=== PATIENT | female | born 1985 | race Two or more races ===

== ENCOUNTER 2024-11-13 15:39 | Outpatient (AMB) | payer MEDICAID, SELFPAY ==
[2024-11-13 16:01] VITALS: BP 108/69; PULSE 73; RESP 17; TEMP 36.9; O2SAT 97; BMI 22.3
--- NOTE | 2024-11-13 16:01 | GYNCLNT_ITS ---
Vital Signs 11/13/24 16:01 Height 1.6 m Height Method Stated Weight 57.153 kg Weight Measurement Method Standing Scale BMI 22.3 BP 108/69 Blood Pressure Source Automatic Cuff Blood Pressure Location Right Upper Arm Position Sitting Respiration 17 Pulse 73 Pulse Source Monitor Temp 98.4 F Temp Source Temporal Artery Scan Pulse Oximetry (%) 97 Oxygen Delivery Method Room Air Allergies/Home Meds Allergies & Medications Allergies No Known Allergies Allergy (Unknown, Verified 11/13/24 16:03) Intake Visit Data Collection New Patient or Established: New Patient (never been to [facility]) Reason for Visit:: REFERRAL ABN PAP Seen by Clinical Staff ONLY (RN/MA): No Pc Network Technician Required: No Do You Feel Safe at Home: Yes Authorities Contacted: N/A PCP or OBGYN visit in last 3 months: No Hx Now: No Are you currently on any form of Control: Yes (IUD) Pain Present Currently: No Pain Scale Used: Gotti-Alberto/Numerical Pain scale:: 0 Smoking Status 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 1. Little interest or pleasure in doing things: not at all 2. Feeling down, depressed, or hopeless: not at all Total score: 0 PHQ-9 3. Trouble falling or staying asleep, or sleeping too much: Not at all 4. Feeling tired or having little energy: Not at all 5. Poor appetite or overeating: Not at all 6. Feeling bad about yourself - or that you are a failure or have let yourself or your family down: Not at all 7. Trouble concentrating on things, such as reading the newspaper or watching television: Not at all 8. Moving or speaking so slowly that other people could have noticed? - Or the opposite - being so fidgety or restless that you have been moving around a lot more than usual: not at all 9. Thoughts that you would be better off or of hurting yourself in some way: Not at all Total score: 0 If you checked off any problems, how difficult have these problems made it for you to do your work, take care of things at home, or get along with other people?: not difficult at all Source: Developed by Drs. Issac Lea, Samantha Echevarria, Lee Eckert and colleagues, with an educational fara from [employer]. Depression screen completed yes Social History Living Situation History Lives With: Family Housing: House Tobacco History Smoking Status: Never smoker Alcohol History Alcohol Intake: Never Domestic Abuse History Do You Feel Safe at Home: Yes History of Present Illness HPI Narrative Ofelia Park is a 39-year-old female referred from [facility] for review of abnormal pap smear results. She had a pap smear on July 24, 2024, which was negative for intraepithelial lesion or malignancy but positive for high-risk HPV subtypes other than 16, 18, and 45. The patient also had arabella and Jivi on the vaginitis panel. Upon further questioning, Ofelia revealed a history of an abnormal pap smear a couple of years ago, for which she underwent a procedure she describes as sprayed something really cold, likely a cryotherapy treatment. This information was not included in the referral documentation. Ofelia reports experiencing pain and discomfort during intercourse. She also describes sharp pains in her side, specifically in the ovary area. These pains occur both when she is about to menstruate and at other times unrelated to her menstrual cycle. The patient notes that these symptoms are present even when she is not engaging in intercourse. The patient confirms that she was treated for the bacterial and yeast infections identified in her recent pap smear and associated tests. ROS: Genitourinary: Positive for dyspareunia, pelvic pain unrelated to intercourse or menstruation. Musculoskeletal: Positive for sharp pain in the groin area. Exam General General Appearance: alert, in no apparent distress and healthy appearing Head Head exam: atraumatic Neck Neck exam: Present normal inspection and trachea midline Chest Chest inspection: Present normal inspection and symmetric chest wall rise External exam: Present normal external exam; Absent tenderness Neuro Neurological exam: Present oriented X3 Psych Psychiatric exam: Present normal affect and normal mood Office Procedures OB Clinic LOC & Office Proc's Nursing/Assessment Patient Status: Initial/New Patient OB Clinic Nursing Assessment: Medication Reconciliation, Update PMH in EMR and Vital Signs OB Clinic Coordination of Care: Complex Care and Chronic Disease 1-5, Consent,records obtained, informed consent, Education Simp Pt/Fam, Lab and Imaging orders and Staff clarify orders New Patient Charge New Patient Point Assignment: 1099 New Patient Point Charge: POCKET BUILDER Level 3 ([id number]) Assessment & Plan Diagnosis / Problem List (1) Pelvic and perineal pain: Status: Acute (2) High risk human papillomavirus (HPV) detected: Status: Acute Plan Abnormal Pap Smear with Positive High-Risk HPV: - Pap smear from 07/24/2024 negative for intraepithelial lesion or malignancy. - Positive for high-risk HPV subtypes (other than 16, 18, and 45). - History of previous abnormal pap smear with cryotherapy treatment. - 5-year risk of CIN3+ estimated at 2.3% to 8.6% based on current results. Plan: - Perform colposcopy with cervical biopsy - Provide patient education on colposcopy procedure - Schedule follow-up appointment for colposcopy Pelvic Pain: - Sharp pains in ovary area, during intercourse and unrelated to menstrual cycle. - Pain not likely related to cervical abnormalities. - Further investigation needed to determine cause. Plan: - Order pelvic ultrasound to evaluate for ovarian cysts or other pelvic pathology History of Vaginal Infections: - Recent pap smear detected Arabella and Jivi on vaginitis panel. - Infections have been treated. Plan: - No current action needed; infections have been treated - Monitor for recurrence of symptoms
== END 2024-11-13 16:39 | disposition home or self-care (01) ==
LOC: HODSOBC 15:39
PROVIDERS: PCP Registered Nurse Community Health; Referring Provider Registered Nurse Community Health; Supervising Provider Obstetrics & Gynecology; Visit Provider Obstetrics & Gynecology
DX: R10.2 Pelvic and perineal pain (principal); R87.810 Cervical high risk human papillomavirus (HPV) DNA test positive; Z87.42 Personal history of other diseases of the female genital tract
CPT/HCPCS: 99203; G0463

== ENCOUNTER → 2024-11-22 | Outpatient (CLI) | payer BC, MEDICAID, SELFPAY ==
--- NOTE | 2024-11-22 14:00 | XR_ITS ---
Examination: Pelvic ultrasound, transabdominal, complete Technique: Transabdominal ultrasound of the pelvis performed using grayscale imaging Date and time of exam: November 22, 2024 1459 hours INDICATIONS: Pelvic pain 6 months during intercourse FINDINGS: Uterus 8.7 cm Intrauterine device satisfactory position No uterine mass or intrauterine gestation Endometrial stripe 0.7 cm Right ovary 3.5 cm arterial flow multiple cysts, the largest 26 mm Left ovary 3.6 cm arterial flow follicular cysts, the largest 14 mm IMPRESSION: No uterine mass or intrauterine gestation
== END | disposition home or self-care (01) ==
PROVIDERS: PCP Registered Nurse Community Health; Referring Provider Obstetrics & Gynecology; Visit Provider Obstetrics & Gynecology
DX: R10.2 Pelvic and perineal pain (principal)
CPT/HCPCS: 76856

== ENCOUNTER 2024-12-10 11:31 | Outpatient (AMB) | payer BC, MEDICAID, SELFPAY ==
--- NOTE | 2024-12-10 11:43 | GYNCLNT_ITS ---
Vital Signs 12/10/24 11:44 Height 1.6 m Height Method Stated Weight 58.684 kg Weight Measurement Method Standing Scale BMI 22.9 BP 114/74 Blood Pressure Source Automatic Cuff Blood Pressure Location Right Upper Arm Position Sitting Respiration 17 Pulse 81 Pulse Source Monitor Temp 98.7 F Temp Source Temporal Artery Scan Pulse Oximetry (%) 98 Oxygen Delivery Method Room Air Allergies/Home Meds Allergies & Medications Allergies No Known Allergies Allergy (Unknown, Verified 11/13/24 16:03) Medication Reconciliation doxycycline hyclate 100 mg capsule 100 mg PO BID 7 days #14 caps 12/10/24 [Rx Confirmed 12/10/24] ondansetron 4 mg disintegrating tablet 4 mg PO Q6H PRN nausea and vomiting 7 days #20 tabs 12/10/24 [Rx Confirmed 12/10/24] Intake Visit Data Collection New Patient or Established: Established Patient (seen at [facility] within 3 years) Reason for Visit:: US RESULTS Seen by Clinical Staff ONLY (RN/MA): No Program Support Specialist Required: No Do You Feel Safe at Home: Yes Authorities Contacted: N/A PCP or OBGYN visit in last 3 months: Yes Date of Last PCP or OBGYN visit: 11/13/24 Hx Now: No Are you currently on any form of Control: Yes Pain Present Currently: No Pain Scale Used: Gotti-Alberto/Numerical Smoking Status Smoking Status: Never 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 1. Little interest or pleasure in doing things: not at all 2. Feeling down, depressed, or hopeless: not at all Total score: 0 PHQ-9 3. Trouble falling or staying asleep, or sleeping too much: Not at all 4. Feeling tired or having little energy: Not at all 5. Poor appetite or overeating: Not at all 6. Feeling bad about yourself - or that you are a failure or have let yourself or your family down: Not at all 7. Trouble concentrating on things, such as reading the newspaper or watching television: Not at all 8. Moving or speaking so slowly that other people could have noticed? - Or the opposite - being so fidgety or restless that you have been moving around a lot more than usual: not at all 9. Thoughts that you would be better off or of hurting yourself in some way: Not at all Total score: 0 If you checked off any problems, how difficult have these problems made it for you to do your work, take care of things at home, or get along with other people?: not difficult at all Source: Developed by Drs. Issac Lea, Samantha Echevarria, Lee Eckert and colleagues, with an educational fara from [employer]. Depression screen completed yes Social History Living Situation History Marital Status: Lives With: Family Housing: House Tobacco History Smoking Status: Never smoker Second Hand Smoke Exposure: No Alcohol History Alcohol Intake: Never Domestic Abuse History Do You Feel Safe at Home: Yes History of Present Illness HPI Narrative Patient presents for follow-up of an abnormal pap smear with positive high-risk HPV, sharp pelvic pain, and dyspareunia. She has a recent history of bacterial vaginosis and arabella, for which she has already been treated. The patient reports experiencing sharp pelvic pain and pain during intercourse (dyspareunia). The pain is described as deep and occurs during sexual activity. The patient's sister has a history of endometriosis, which is noted to run in families. This family history may be significant given the patient's symptoms. A pelvic ultrasound was performed on November 22, 2024, revealing multiple small cysts on both ovaries. The largest cyst measures 26 millimeters, with another measuring 14 millimeters. These findings may be contributing to the patient's pelvic pain and dyspareunia. The patient was previously recommended to undergo a colposcopy due to her abnormal pap smear and positive high-risk HPV test. She had initially scheduled this procedure at a different facility but is now considering having it done under sedation along with a diagnostic laparoscopy to further investigate her pelvic pain and ovarian cysts. The patient has a history of IUD placement (date unspecified). The IUD is currently in satisfactory position. She reports dyspareunia (pain during intercourse) in her social history. Review of systems is positive for sharp pelvic pain and dyspareunia in the genitourinary system. Diagnostic Test Results and Labs: - Pap smear: Abnormal with positive high-risk HPV - Pelvic ultrasound (11/22/2024): Uterus: 8.7 cm Intrauterine device: In satisfactory position Endometrial stripe: 0.7 cm Right ovary: 3.5 cm with atrial flow, multiple cysts (largest 26 mm) Left ovary: 3.6 cm with atrial flow, follicular cysts (largest 14 mm) No intrauterine mass or intrauterine gestation Exam General General Appearance: alert, in no apparent distress and healthy appearing Head Head exam: atraumatic Neck Neck exam: Present normal inspection and trachea midline Chest Chest inspection: Present normal inspection and symmetric chest wall rise External exam: Present normal external exam; Absent tenderness Neuro Neurological exam: Present oriented X3 Psych Psychiatric exam: Present normal affect and normal mood Office Procedures OB Clinic LOC & Office Proc's Nursing/Assessment Patient Status: Established Patient OB Clinic Nursing Assessment: Medication Reconciliation, Update PMH in EMR and Vital Signs OB Clinic Coordination of Care: Complex Care and Chronic Disease 1-5, Consent,records obtained, informed consent, Education Simp Pt/Fam, Result s/Orders obtained and Staff clarify orders Established Patient Charge Established Patient Point Assignment: 90 Established Patient Point Charge: EP Level 3 (80-115) Assessment & Plan Diagnosis / Problem List (1) Pelvic inflammatory disease: Status: Acute (2) High risk human papillomavirus (HPV) detected: Status: Acute Plan Abnormal Pap Smear with Positive High-Risk HPV: - Schedule colposcopy as part of a combined procedure with diagnostic laparoscopy in the operating room under IV sedation. - Obtain informed consent for the procedure. Pelvic Pain and Dyspareunia: - Prescribe course of antibiotics for presumed PID. - Schedule diagnostic laparoscopy in combination with colposcopy under IV sedation. - Evaluate ovarian cysts and check for endometriosis during laparoscopy. - Prescribe Zofran as needed for potential antibiotic-induced nausea. Recent History of Bacterial Vaginosis and Candidiasis: - Monitor for recurrence of symptoms. Differential Diagnoses: - Pelvic inflammatory disease (PID) - Polycystic ovary syndrome (PCOS) - Endometriosis Imaging: - Recent pelvic ultrasound shows multiple small cysts on both ovaries, with the largest being 26 mm. Family History: - Sister with endometriosis.
[2024-12-10 11:44] VITALS: BP 114/74; PULSE 81; RESP 17; TEMP 37.1; O2SAT 98; BMI 22.9
== END 2024-12-10 12:11 | disposition home or self-care (01) ==
LOC: HODSOBC 11:31
PROVIDERS: PCP Registered Nurse Community Health; Referring Provider Registered Nurse Community Health; Supervising Provider Obstetrics & Gynecology; Visit Provider Obstetrics & Gynecology
DX: N73.9 Female pelvic inflammatory disease, unspecified (principal); R87.810 Cervical high risk human papillomavirus (HPV) DNA test positive
CPT/HCPCS: 99213; G0463

== ENCOUNTER 2025-05-04 20:12 | Emergency (ER) | payer BC, MEDICAID, SELFPAY ==
[2025-05-04 20:13] VITALS: BMI 22.3
[2025-05-04 20:41] VITALS: BP 131/82; PULSE 89; RESP 18; TEMP 36.8; O2SAT 98
--- NOTE | 2025-05-04 20:45 | XR_ITS ---
Examination: Retroperitoneal ultrasound, complete Technique: Multiple high resolution grayscale images of the retroperitoneum obtained, including kidneys and bladder. Exam date and time: May 04, 2025, 2108 hours INDICATIONS: Urinary tract infections with flank pain 3 days FINDINGS: Right kidney 11.3 cm renal cortex 1.4 cm Left kidney 11.1 cm cortex 1.9 cm No hydronephrosis Contracted urinary bladder IMPRESSION: No hydronephrosis or renal calculi
[2025-05-04 21:12] LABS: Basophils # (Auto) 0.0 Thou/mm3 (0.0-0.2); Basophils % (Auto) 0 % (0-2.5); Eosinophils # (Auto) 0.3 Thou/mm3 (0.0-0.5); Eosinophils % (Auto) 4 % (0-10); Hematocrit 39.8 % (36.0-46.0); Hemoglobin 13.1 g/dL (12.0-16.0); Immature Granulocytes Auto 0.01 Thou/mm3 (0.00-0.00); Lymphocytes # (Auto) 2.7 Thou/mm3 (1.0-4.8); Lymphocytes % (Auto) 40 % (10-50); Mean Corpuscular HGB Conc 32.9 g/dl (31.0-37.0); Mean Corpuscular Hemoglobin 30.1 pg (25.0-35.0); Mean Corpuscular Volume 92 fL (80-100); Monocytes # (Auto) 0.7 Thou/mm3 (0.0-0.8); Monocytes % (Auto) 11 % (0-12); Neutrophils # (Auto) 3.1 Thou/mm3 (1.8-7.7); Neutrophils % (Auto) 45 % (37-80); Nucleated Red Blood Cell # 0.00 Thou/mm3 (0.00-0.00); Nucleated Red Blood Cell % 0 /100 WBC (0); Platelet Count 225 Thou/mm3 (140-440); RDW Standard Deviation 41.1 fL (36.4-46.3); Red Blood Count 4.35 Miln/mm3 (4.00-5.20); White Blood Count 6.8 Thou/mm3 (3.6-11.0)
[2025-05-04 21:19] LABS: Collection Type, Urine Clean Catch
[2025-05-04 21:32] LABS: Amorphous Crystals,Urine Present (Absent); Bacteria,Urine Rare; Bilirubin,Urine 2+ (Negative); Blood,Urine Trace (Negative); Clarity,Urine Clear (Clear/Hazy); Color,Urine Drk-Orange (Lt Yel-Yel); Glucose, Urine Negative (Negative); Ketones,Urine Negative (Negative); Leukocyte Esterase,Urine Positive (Negative); Nitrite,Urine Positive (Negative); PH,Urine 6.5 (5.0-7.0); Protein,Urine Negative (Neg - Trace); RBC,Urine 2 /hpf (0-3); Specific Gravity,Urine 1.015 (1.001-1.035); Squamous Epithelial Cell,Urine 3 /hpf (0-5); Urobilinogen,Urine 6.0 mg/dL (0.0-1.0); WBC,Urine 7 /hpf (0-5)
[2025-05-04 21:33] LABS: HCG Qualitative,Urine Negative
[2025-05-04 21:35] LABS: Alanine Aminotransferase 23 U/L (10-49); Albumin, Serum 4.7 gm/dL (3.5-5.0); Albumin/Globulin Ratio 2.0 (1.2-2.2); Alkaline Phosphatase 65 U/L (46-116); Anion Gap 7 (7-16); Aspartate Amino Transferase 22 U/L (0-34); BUN/Creatinine Ratio 13 Ratio (12-20); Bilirubin,Total 0.6 mg/dL (0.3-1.2); Blood Urea Nitrogen 9 mg/dL (9-23); Calcium 9.9 mg/dL (8.3-10.6); Calcium (Corrected) 9.9 mg/dL (8.5-10.1); Carbon Dioxide 26.7 mMol/L (20.0-31.0); Chloride 107 mMol/L (98-107); Creatinine (Component) 0.7 mg/dL (0.6-1.3); Estimated Creatinine Clearance 95.0 mL/min (>60); Globulin 2.4 gm/dL (2.3-3.5); Glucose 84 mg/dL (74-106); Lipase 49 U/L (12-53); Osmolality,Calculated 278 (275-295); Potassium 4.1 mMol/L (3.4-5.1); Sodium 141 mMol/L (136-145); Total Protein 7.1 gm/dL (5.7-8.2); eGFR > 60 See Note
[2025-05-04] MEDS: FLUCONAZOLE 150 MG TABLET PO (22:36)
[2025-05-04] MEDS: HYDROcodone/APAP 5/325 TABLET 1 TAB PO (22:36)
--- NOTE | 2025-05-05 02:40 | PD.EDFMALE ---
ED Female Urogenital RME/HPI General Chief complaint: Urogenital-Female Stated complaint: UTI SYMPTOMS Time Seen by Provider: 05/04/25 20:16 Arrival date/time: 05/04/25 20:12 This is a case of 39-year-old female with no medical history came in in the emergency room due to painful urination no hematuria but with urgency and increased frequency for 1 week patient was seen by the primary care physician where she was treated for urinary tract infection and was treated for cephalexin patient still with the symptoms now with vaginal discharge and itching and both flank pain thus decided to sought consult here in the emergency room Limitations: no limitations Related Data Previous Rx's ?Medication ?Instructions ?Recorded ibuprofen 800 mg tablet 800 mg PO Q8H PRN pain #20 tabs 05/04/25 metronidazole 500 mg tablet 500 mg PO BID #20 tabs 05/04/25 phenazopyridine 200 mg tablet 200 mg PO TID 6 doses #6 tabs 05/04/25 (Pyridium) Allergies Allergy/AdvReac Type Severity Reaction Status Date / Time No Known Allergies Allergy Unknown Verified 11/13/24 16:03 Review of Systems Review of Systems Systems Reviewed: All systems reviewed, normal except as documented Constitutional Constitutional: Reports system reviewed and no additional complaints, except as documented and Reports as per HPI Cardiovascular Cardiovascular: Reports system reviewed and no additional complaints, except as documented and Reports as per HPI Respiratory Respiratory: Reports system reviewed and no additional complaints, except as documented and Reports as per HPI Gastrointestinal Gastrointestinal: Reports system reviewed and no additional complaints, except as documented and Reports as per HPI Genitourinary Genitourinary: Reports system reviewed and no additional complaints, except as documented and Reports as per HPI Musculoskeletal Musculoskeletal: Reports system reviewed and no additional complaints, except as documented and Reports as per HPI Neurologic Neurologic: Reports system reviewed and no additional complaints, except as documented and Reports as per HPI Past Medical History Past Medical History CARDIAC: Negative Cardiac Disorders or Congestive Heart Failure RESPIRATORY: Negative Chronic Obstructive Pulmonary Disease (COPD) or Asthma GENITOURINARY: Negative Renal Disease ENDOCRINE: Negative Diabetes Mellitus Type 1 or Diabetes Mellitus Type 2 HEMATOLOGIC: Negative Sickle Cell Disease Social History SMOKING STATUS: Never smoker SECOND HAND EXPOSURE: No ED Exam General Limitations: Present no limitations General appearance: Present alert, in no apparent distress and other (Patient is awake alert oriented not in distress nontoxic looking well-hydrated well nourished) Head Head exam: Present atraumatic, normocephalic and normal inspection Eye Eye exam: Present normal appearance, PERRL and EOMI ENT ENT exam: Present normal exam, normal oropharynx and mucous membranes moist Neck Neck exam: Present normal inspection, full ROM and trachea midline; Absent tenderness, meningismus, lymphadenopathy or thyromegaly Chest Chest inspection: Present normal inspection and symmetric chest wall rise; Absent tenderness Respiratory Respiratory exam: Present normal lung sounds bilaterally; Absent respiratory distress, wheezes, stridor, accessory muscle use or prolonged expiratory phase Cardiovascular Cardiovascular exam: Present regular rate, normal rhythm and normal heart sounds; Absent bradycardia, tachycardia, irregular rhythm, systolic murmur or diastolic murmur Abdominal Exam Abdominal exam: Present soft and normal bowel sounds; Absent distention, tenderness, guarding, rebound, rigidity, diminished bowel sounds, hyperactive bowel sounds, hypoactive bowel sounds or organomegaly Speculum exam: Present other (Patient refused not comfortable) Extremities Exam Extremities exam: Present normal inspection and full ROM Back Exam Back exam: Present normal inspection and full ROM; Absent tenderness, CVA tenderness (R), CVA tenderness (L), muscle spasm, paraspinal tenderness, vertebral tenderness, rashes, sciatic notch tenderness (R), sciatic notch tenderness (L), straight leg raise (R) or straight leg raise (L) Neurological Exam Neurological exam: Present alert, oriented X3, CN II-XII intact, normal gait and reflexes normal; Absent motor sensory deficit Psychiatric Psychiatric exam: Present normal affect and normal mood Skin Skin exam: Present warm, dry, intact, normal color and other (Excellent skin turgor) Course Quality Measures none Orders Category Date Time Status US renal BI Stat Exams 05/04/25 20:45 Completed CBC Stat Lab 05/04/25 21:03 Completed Chlamydia/GC/TV - PCR Stat Lab 05/04/25 Ordered Comprehensive Metabolic Panel Stat Lab 05/04/25 21:03 Completed HCG Qualitative,Urine Stat Lab 05/04/25 21:09 Completed Lipase Stat Lab 05/04/25 21:03 Completed Urinalysis Stat Lab 05/04/25 21:09 Completed Fluconazole [Diflucan] Med 05/04/25 22:29 Discontinued 150 mg PO X1 ONE Fluconazole [Diflucan] Med 05/04/25 22:20 Discontinued 200 mg PO X1 ONE HYDROcodone*/APAP 5/325 [[place] 5/325] Med 05/04/25 22:21 Discontinued 1 tab PO X1 ONE Phenazopyridine HCl [Pyridium] Med 05/04/25 22:20 Discontinued 200 mg PO X1 ONE Vital Signs Vital signs: Vital Signs Temperature 98.2 F 05/04/25 20:41 Pulse Rate 89 05/04/25 20:41 Respiratory Rate 18 05/04/25 20:41 Blood Pressure 131/82 H 05/04/25 20:41 Pulse Oximetry (%) 98 05/04/25 20:41 Oxygen Delivery Method Room Air 05/04/25 20:41 Oxygen saturation is 98% in room air Urogenital - Female MDM Narrative MDM Narrative:: This is a case of 39-year-old female with no medical history came in in the emergency room due to painful urination no hematuria but with urgency and increased frequency for 1 week patient was seen by the primary care physician where she was treated for urinary tract infection and was treated for cephalexin patient still with the symptoms now with vaginal discharge and itching and both flank pain thus decided to sought consult here in the emergency room physical examination patient is awake alert oriented not in distress nontoxic looking well-hydrated well-nourished noted excellent skin turgor abdominal exam is benign nonsurgical no guarding no rebound no rigidity negative psoas negative straight and negative Rovsing's negative McBurney's negative [place] sign negative CVA tenderness patient back exam is normal patient feels pelvic exam patient is not comfortable due to vaginal irritation blood test showed no leukocytosis no anemia kidney and liver function is normal no electrolyte imbalance lipase were normal patient urinalysis showed WBC in the urine suggestive of urinary tract infection patient ultrasound of the kidney has no urinary stone gonorrhea chlamydia and BV Anisha is still pending result patient was advised to call medical record for the result of the test and if possible return to the emergency room or primary care physician for further treatment patient will continue cephalexin at home and to finish the antibiotic patient was given fluconazole for possible yeast infection patient was prescribed with metronidazole for vaginitis and Pyridium for urinary symptoms patient will follow-up with PCP in 2 days for reevaluation and for any worsening symptoms or any emergent concern return precaution in the ER is advised Patient was discharged with comfortable condition walking with stable gait. Patient verbalized no further complains explained diagnosis and answered patient question. Patient is comfortable with the proposed management plan including the need to follow up with his/her primary care physician and any specialist if applicable Discussed patient for any urgent condition or worsening sx, He/She needed to go to emergency room immediately or call 911. Patient acknowledge the responsibility to follow up as instructed and to monitor her/his symptoms. For any persistence of the symptoms for more than 3-5 days return precaution advised. Discussed the result of the test and was given printed discharge instruction Patient data External records reviewed:: [facility] previous records Clinical information provided by:: patient Social determinants that could affect healthcare access:: none Patient has the following chronic illnesses:: None How is presenting disease/condition affected by chronic disease/condition?: no chronic disease Evaluation data The following diagnostics were reviewed and interpreted by me:: lab results and radiology exam(s) Lab and/or radiology exams considered but not ordered:: Reviewed Interpretation Summary: Reviewed Medications / Prescriptions Medications or Prescriptions considered but not ordered:: Given Medication administrations:: Medication Administration History Discontinued Medications Hydrocodone Bitart/Acetaminophen (Hydrocodone/[place] 5/325 Tablet) 1 tab PO X1 ONE Stop: 05/04/25 22:22 Last Admin: 05/04/25 22:36 Dose: 1 tab Documented By: BD Fluconazole (Fluconazole 100 Mg Tablet) 200 mg PO X1 ONE Stop: 05/04/25 22:21 Last Admin: 05/04/25 22:32 Dose: Not Given Documented By: BD Non-Admin Reason: Medication Not Available Fluconazole (Fluconazole 150 Mg Tablet) 150 mg PO X1 ONE Stop: 05/04/25 22:30 Last Admin: 05/04/25 22:36 Dose: 150 mg Documented By: BD Phenazopyridine HCl (Phenazopyridine Hcl 100 Mg Tablet) 200 mg PO X1 ONE Stop: 05/04/25 22:21 Last Admin: 05/04/25 22:33 Dose: Not Given Documented By: BD Non-Admin Reason: Medication Not Available Given Consultations Consultation(s) initiated? (list below): No Diagnosis Urogenital Female Differential Diagnosis: urinary tract infection, bacterial vaginosis, trichomoniasis, vaginitis and cystitis Most likely diagnosis given after review of the tests above:: Urinary tract infection vaginitis Admission Indicated Admission indicated?: not indicated Explain why admission is indicated or not indicated:: Not indicated Admission Request Was there a request for admission?: No Admission Attestation Admission request attestation: Not indicated Disposition Plan Disposition Plan: Discharge Discharge Attestation Discharge Attestation: The patient and all family members were given an opportunity to ask questions and understood the discharge instructions. Discharge instructions specifically effects, indications for sooner follow up or return to the emergency department, and the expected course of current diagnosis. Patient condition: Stable Discharge Plan Plan Patient Disposition: HOME (Self Care) Prescriptions/Referrals Prescriptions/Med Rec: New metronidazole 500 mg tablet 500 mg PO BID Qty: 20 0RF phenazopyridine [Pyridium] 200 mg tablet 200 mg PO TID 0 Days Qty: 6 0RF ibuprofen 800 mg tablet 800 mg PO Q8H PRN (Reason: pain) Qty: 20 0RF Referrals: Ofelia Boyer FNP [Primary Care Provider] - In 1 week Problem List Clinical Impression: Flank pain, Dysuria, Vaginal discharge, Vaginitis Patient/Caregiver Discharge Instructions Education Materials: Dysuria, Preventing Vaginitis, ED Pain, Acute, Uncertain Cause Additional Instructions: It is very important to finish and continue your cephalexin follow-up with your primary care physician in 2 days for reevaluation persistent worsening symptoms or any emergent concern call 911 or go to the nearest emergency room take your medication as directed finish the course of antibiotic call the medical record for the result of your STD testing and if positive return to the emergency room or go to your primary care physician for reevaluation and further treatment safe sex is advised Print Language: Taiwanese Stand Alone Forms: Lisette Award Info., Patient Portal Info Letter MARTA/MARY Supervising Physician ALLISON Supervising Physician: Dr. Mcpherson
== END 2025-05-04 22:39 | disposition home or self-care (01) ==
PROVIDERS: Nurse Practitioner Family; Emergency Provider Emergency Medicine; PCP Registered Nurse Community Health
DX: N76.0 Acute vaginitis (principal); R30.0 Dysuria; R10.A3 Flank pain, bilateral
CPT/HCPCS: 36415; 76770; 80053; 81001; 81025; 83690; 85025; 87491; 87591; 87661; 99283; A9270